=== PATIENT | female | born 1970 | race Caucasian/White ===

== ENCOUNTER → 2018-10-19 | Outpatient (CLI) | payer OTHER ==
--- NOTE | 2018-10-19 14:46 | REPMRS ---
Patient History The patient states she had a clinical breast exam in 2017. No known family history of cancer. 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 3D TOMOSYNTHESIS WAS PERFORMED. Digital Mammo Screening Bilat: October 19, 2018 - Exam #: [id number] Bilateral CC and MLO view(s) were taken. Technologist: Cinthia Hernandez, Technologist Prior study comparison: December 19, 2005, bilateral digital mammo screening bilat, performed at [facility]. FINDINGS: There are scattered fibroglandular densities. There has been no change in the appearance of the mammogram from the prior studies. There is a mild amount of residual fibroglandular tissue which is fairly symmetric. There is no interval development of dominant mass, architectural distortion, or clustered microcalcification suggestive of malignancy. Assessment: BI-RADS/ACR category 1 mammogram. Negative Mammogram. Recommendation Routine screening mammogram in 1 year (for women over age 40). This mammogram was interpreted with the aid of an FDA-approved computer-aided dectection system. Electronically Signed By: Benjamin Awan MD 10/19/18 [id number]
== END ==
LOC: M RAD 13:50
PROVIDERS: ATTEND Nurse Practitioner Family
DX: Z12.31 Encounter for screening mammogram for malignant neoplasm of breast (principal)

== ENCOUNTER → 2021-05-20 | Outpatient (REF) | payer OTHER ==
[2021-05-20 18:08] LABS: FOLATE 7.8 NG/ML
== END ==
LOC: M LAB REF 16:35
PROVIDERS: ATTEND Registered Nurse
DX: Z98.84 Bariatric surgery status (principal)

== ENCOUNTER → 2022-01-31 | Outpatient (CLI) | payer OTHER | LOC: M RAD 10:40 | PROVIDERS: ATTEND Physician Assistant Medical | DX: M79.674 Pain in right toe(s) (principal) ==

== ENCOUNTER → 2022-09-01 | Outpatient (REF) | payer OTHER ==
[2022-09-01 17:20] LABS: PERCENT SATURATION 51.8 % (13.2-45.0)
[2022-09-01 17:25] LABS: FERRITIN 74.2 NG/ML (7.3-270.7)
[2022-09-01 17:26] LABS: FOLATE 2.1 NG/ML (>5.4)
== END ==
LOC: M LAB REF 16:06
PROVIDERS: ATTEND Physician Assistant Medical
DX: Z98.84 Bariatric surgery status (principal); R06.02 Shortness of breath; M79.605 Pain in left leg

== ENCOUNTER → 2022-09-02 | Outpatient (CLI) | payer OTHER | LOC: M RAD 15:40 | PROVIDERS: ATTEND Physician Assistant Medical | DX: M79.605 Pain in left leg (principal) ==

== ENCOUNTER → 2022-09-07 | Outpatient (CLI) | payer OTHER ==
[~2022-09-07] MED LIST: ISOVUE-370 76% 100ML VIAL As Ordered ONE
== END ==
LOC: M RAD 06:44
PROVIDERS: ATTEND Physician Assistant Medical
DX: R06.02 Shortness of breath (principal); K80.20 Calculus of gallbladder without cholecystitis without obstruction; Z98.84 Bariatric surgery status

== ENCOUNTER 2024-04-29 07:09 | Emergency (ER) | payer OTHER ==
[~2024-04-29] VITALS: Ht 162.6 cm; Wt 71.7 kg
[2024-04-29] MEDS: IPRATROPIUM 0.5MG/ALBUTEROL 2.5MG INH SOL UD 3ML (DUONEB) NEB ONE (07:56)
[2024-04-29] MEDS: ALBUTEROL SULFATE 2.5MG/0.5ML INH NEB SOLN INH ONE (07:56)
[2024-04-29] MEDS: MORPHINE 4 MG/ML 1ML VIAL IV ONE (08:01)
[2024-04-29] MEDS: ONDANSETRON 4MG 2ML VIAL IV ONE (08:01)
[2024-04-29] MEDS: methylPREDNISolone 125MG 2ML VIAL IV ONE (08:07)
[2024-04-29 08:13] LABS: BASO # 0.1 10^3/uL (0.0-0.2); BASO % 1.3 % (0.0-1.0); EOS # 0.2 10^3/uL (0.0-0.5); EOS % 3.2 % (0.0-3.0); HEMOGLOBIN 15.1 g/dl (12.0-15.5); LYMPH # 1.9 10^3/uL (1.5-5.0); LYMPH % 34.8 % (24.0-44.0); MEAN CORPUSCULAR HEMOGLOBIN 32.1 pg (27.0-33.0); MEAN CORPUSCULAR HGB CONC 34.3 g/dl (32.0-36.5); MEAN CORPUSCULAR VOLUME 93.6 fl (80.0-96.0); MONO # 0.5 10^3/uL (0.0-0.8); MONO % 9.5 % (2.0-8.0); NEUTROPHILS # 2.9 10^3/uL (1.5-8.5); PLATELET COUNT, AUTOMATED 255 10^3/uL (150-450); WHITE BLOOD COUNT 5.6 10^3/uL (4.0-10.0)
[2024-04-29] MEDS ORDERED: ISOVUE-370 76% 100ML VIAL As Ordered ONE (08:13)
[2024-04-29 08:36] LABS: ALBUMIN 3.2 G/DL (3.2-5.2); ALKALINE PHOSPHATASE 137 U/L (46-116); ALT/SGPT 19 U/L (7.0-40); AST/SGOT 30 U/L (<34); BILIRUBIN,DIRECT 0.1 MG/DL (<0.4); BILIRUBIN,TOTAL 0.5 MG/DL (0.3-1.2); BLOOD UREA NITROGEN 6 MG/DL (9-23); CALCIUM LEVEL 8.9 MG/DL (8.5-10.1); CARBON DIOXIDE LEVEL 26 MMOL/L (20-31); CHLORIDE LEVEL 108 MMOL/L (98-107); CK-MB VALUE MASS 3.8 NG/ML (<3.6); CREATININE FOR GFR 0.48 MG/DL (0.55-1.30); GLOMERULAR FILTRATION RATE > 60.0 (>51); GLUCOSE, FASTING 93 MG/DL (60-100); POTASSIUM SERUM 3.7 MMOL/L (3.5-5.1); SODIUM LEVEL 140 MMOL/L (136-145); TOTAL PROTEIN 6.5 G/DL (5.7-8.2)
[2024-04-29 08:37] LABS: FREE T4 1.11 NG/DL (0.89-1.76); THYROID STIMULATING HORMONE 1.666 uIU/ML (0.55-4.78)
[2024-04-29 08:41] LABS: CPK CREATINE PHOSPHOKINASE 193 U/L (34-145); MB/CK RELATIVE INDEX 1.96 (< OR =4)
[2024-04-29 09:29] LABS: CK-MB VALUE MASS 3.7 NG/ML (<3.6)
[2024-04-29 09:30] LABS: CPK CREATINE PHOSPHOKINASE 182 U/L (34-145); MB/CK RELATIVE INDEX 2.03 (< OR =4)
[2024-04-29] MEDS ORDERED: CEFD300C PO (09:47)
[2024-04-29] MEDS ORDERED: ALBU2.5V10 NEB (09:47)
[2024-04-29] MEDS ORDERED: PRED20TA PO (09:48)
[2024-04-29] MEDS ORDERED: PERC5TAB12 PO (09:49)
[2024-04-29 10:15] VITALS: BP 129/72; TEMP 97.9; O2SAT 94
[2024-04-29] MEDS: ALBUTEROL 90 MCG/ACT 8GM HFA INHALER INH ONE (10:15)
[2024-04-29] MEDS: CEFDINIR 300 MG CAP (OMNICEF) PO ONE (10:18)
[2024-04-29] MEDS ORDERED: NEBU1EAC74 MC (16:33)
[2024-04-29] MEDS ORDERED: HOME1MIS2 XX (16:33)
== END 2024-04-29 10:57 | disposition home or self-care (01) ==
LOC: M ED 07:09
DX: J18.9 Pneumonia, unspecified organism (principal); S20.219A Contusion of unspecified front wall of thorax, initial encounter; W01.198A Fall on same level from slipping, tripping and stumbling with subsequent striking against other object, initial encounter; J45.909 Unspecified asthma, uncomplicated; K57.30 Diverticulosis of large intestine without perforation or abscess without bleeding; F17.200 Nicotine dependence, unspecified, uncomplicated; Z98.84 Bariatric surgery status; Z79.52 Long term (current) use of systemic steroids; Z79.2 Long term (current) use of antibiotics; Z79.899 Other long term (current) drug therapy; Y92.9 Unspecified place or not applicable; Y93.89 Activity, other specified; Y99.9 Unspecified external cause status
CPT/HCPCS: 70450; 71045; 71260; 74177; 80047; 80048; 80076; 82550; 82553; 83880; 84439; 84443; 84484; 85025; 93005; 93041; 94010; 94760; 96374; 96375; 99285; J2405; J2919; Q9967

== ENCOUNTER → 2024-05-08 | Outpatient (REF) | payer OTHER ==
[~2024-05-08] MED LIST changes: +ALBU2.5V10 NEB; +CEFD300C PO; +HOME1MIS2 XX; -ISOVUE-370 76% 100ML VIAL As Ordered ONE; +NEBU1EAC74 MC; +PERC5TAB12 PO; +PRED20TA PO
[2024-05-08 18:48] LABS: FERRITIN 29.6 NG/ML (7.3-270.7); FOLATE 8.7 NG/ML (>5.4); PERCENT SATURATION 62.6 % (13.2-45.0); PHOSPHORUS LEVEL 5.4 MG/DL (2.5-4.9)
[2024-05-08 18:49] LABS: TOTAL 25(OH) VITAMIN D 11.3 NG/ML (20.0-100.0)
== END ==
LOC: M LAB REF 16:39
PROVIDERS: ATTEND Physician Assistant Medical
DX: Z98.84 Bariatric surgery status (principal)

== ENCOUNTER → 2024-05-09 | Outpatient (CLI) | payer OTHER | LOC: M WUC 11:51 | PROVIDERS: ATTEND Physician Assistant Medical | DX: R06.02 Shortness of breath (principal) ==

== ENCOUNTER 2024-06-24 10:01 | Emergency (ER) | payer OTHER ==
[~2024-06-24] VITALS: Ht 162.6 cm; Wt 73.7 kg
[2024-06-24 11:10] LABS: ALBUMIN 3.1 G/DL (3.2-5.2); ALKALINE PHOSPHATASE 95 U/L (35-104); ALT/SGPT 20 U/L (7.0-40); AST/SGOT 26 U/L (<34); BILIRUBIN,DIRECT 0.1 MG/DL (<0.4); BILIRUBIN,TOTAL 0.3 MG/DL (0.3-1.2); BLOOD UREA NITROGEN 7 MG/DL (9-23); CARBON DIOXIDE LEVEL 24 MMOL/L (20-31); CHLORIDE LEVEL 109 MMOL/L (98-107); CREATININE FOR GFR 0.73 MG/DL (0.55-1.30); GLOMERULAR FILTRATION RATE > 60.0 (>51); GLUCOSE, FASTING 93 MG/DL (60-100); POTASSIUM SERUM 3.6 MMOL/L (3.5-5.1); SODIUM LEVEL 142 MMOL/L (136-145); TOTAL PROTEIN 6.2 G/DL (5.7-8.2)
[2024-06-24 11:15] LABS: THYROID STIMULATING HORMONE 0.991 uIU/ML (0.55-4.78); THYROXINE (T4) 6.6 UG/DL (4.5-10.9)
[2024-06-24] MEDS ORDERED: predniSONE 20 MG TAB PO ONE (16:35)
[2024-06-24] MEDS ORDERED: ISOVUE-370 76% 100ML VIAL As Ordered ONE (16:43)
[2024-06-24] MEDS: IPRATROPIUM 0.5MG/ALBUTEROL 2.5MG INH SOL UD 3ML (DUONEB) NEB ONE (16:44)
[2024-06-24] MEDS: methylPREDNISolone 125MG 2ML VIAL IV ONE (16:52)
[2024-06-24 17:24] LABS: BASO # 0.1 10^3/uL (0.0-0.2); BASO % 1.2 % (0.0-1.0); EOS # 0.2 10^3/uL (0.0-0.5); EOS % 3.2 % (0.0-3.0); HEMATOCRIT 42.4 % (36.0-47.0); HEMOGLOBIN 14.2 g/dl (12.0-15.5); LYMPH # 2.4 10^3/uL (1.5-5.0); LYMPH % 41.2 % (24.0-44.0); MEAN CORPUSCULAR HEMOGLOBIN 32.1 pg (27.0-33.0); MEAN CORPUSCULAR HGB CONC 33.5 g/dl (32.0-36.5); MEAN CORPUSCULAR VOLUME 95.9 fl (80.0-96.0); MONO # 0.5 10^3/uL (0.0-0.8); MONO % 9.5 % (2.0-8.0); NEUTROPHILS # 2.6 10^3/uL (1.5-8.5); NEUTROPHILS % 44.7 % (36.0-66.0); PLATELET COUNT, AUTOMATED 236 10^3/uL (150-450); RED BLOOD COUNT 4.42 10^6/uL (4.00-5.40); WHITE BLOOD COUNT 5.7 10^3/uL (4.0-10.0)
[2024-06-24 17:29] LABS: CK-MB VALUE MASS < 1.0 NG/ML (<3.6)
[2024-06-24 17:32] LABS: CPK CREATINE PHOSPHOKINASE 100 U/L (34-145)
[2024-06-24] MEDS ORDERED: BENZ200C70 PO (17:54)
[2024-06-24] MEDS ORDERED: VENTAER INH (17:54)
[2024-06-24 17:56] VITALS: BP 151/80; TEMP 97.1; O2SAT 98
[2024-06-24] MEDS ORDERED: PRED20TA PO (17:57)
== END 2024-06-24 17:58 | disposition home or self-care (01) ==
LOC: M ED 10:01
DX: J20.9 Acute bronchitis, unspecified (principal); R06.2 Wheezing; K21.9 Gastro-esophageal reflux disease without esophagitis; F17.200 Nicotine dependence, unspecified, uncomplicated; Z79.52 Long term (current) use of systemic steroids; Z79.899 Other long term (current) drug therapy; Z79.2 Long term (current) use of antibiotics; Z98.84 Bariatric surgery status
CPT/HCPCS: 71046; 71275; 80048; 80076; 82550; 82553; 83880; 84436; 84443; 84484; 85025; 87040; 87486; 87581; 87633; 87798; 93005; 94640; 96374; 99284; J2919; Q9967

== ENCOUNTER → 2024-09-25 | Outpatient (CLI) | payer OTHER ==
[~2024-09-25] MED LIST changes: +BENZ200C70 PO; +VENTAER INH
== END ==
LOC: M WHC 16:26
PROVIDERS: ATTEND Physician Assistant Medical
DX: Z12.31 Encounter for screening mammogram for malignant neoplasm of breast (principal); R92.313 Mammographic fatty tissue density, bilateral breasts